=== PATIENT | male | born 1985 | race African-American/Black ===

== ENCOUNTER 2019-05-06 08:03 | Emergency (ER) | payer MEDICAID ==
[~2019-05-06] VITALS: Ht 177.8 cm; Wt 86.0 kg
[2019-05-06] MEDS ORDERED: LIDOCAINE HCL 1% 20ML VIAL (Pyxis) INJ INFIL ONE (09:00)
[2019-05-06 09:18] LABS: BASOPHILS % 1.1 % (0.0-2.0); EOSINOPHILS % 5.7 % (0.0-5.0); HEMOGLOBIN. 14.2 g/dL (14.0-18.0); LYMPHOCYTES % 25.8 % (20.0-50.0); MEAN CORPUSCULAR VOLUME 94.8 fL (80.0-94.0); MEAN PLATELET VOLUME 7.9 fl (7.4-10.4); MONOCYTES % 8.7 % (2.0-8.0); NEUTROPHILS % 58.7 % (40.0-76.0); PLATELET 300 x1000/uL (130-400); RED BLOOD CELL COUNT 4.44 mill/uL (4.7-6.1); RED CELL DISTRIBUTION WIDTH 15.5 % (11.6-14.6)
[2019-05-06] MEDS ORDERED: KETOROLAC 30MG/ML VIAL IM ONE (11:15)
[2019-05-06 12:09] VITALS: BP 148/98
[2019-05-06] MEDS ORDERED: IBUPROFEN 600MG TABLET PO ONE (12:15)
== END 2019-05-06 12:11 | disposition home or self-care (01) ==
LOC: ER 08:22
DX: S01.512A Laceration without foreign body of oral cavity, initial encounter (principal); I10 Essential (primary) hypertension; X58.XXXA Exposure to other specified factors, initial encounter; Y93.89 Activity, other specified; Y92.89 Other specified places as the place of occurrence of the external cause; Y99.8 Other external cause status
CPT/HCPCS: 12011; 36415; 85025; 99283